=== PATIENT | female | born 1975 | race Caucasian/White ===

== ENCOUNTER 2020-09-04 11:40 | Emergency (ER) | payer OTHER, SELFPAY ==
[2020-09-04 11:42] VITALS: BP 138/70; PULSE 86; RESP 16; TEMP 37; O2SAT 98; BMI 26.6
--- NOTE | 2020-09-04 11:55 | ED.SKABFB ---
HPI - Skin/Abscess/Foreign Bdy General Chief complaint: Skin/Abscess/Foreign Body Stated complaint: COVID VACCINE REACTION Time Seen by Provider: 09/04/20 11:41 Source: patient Mode of arrival: ambulatory Limitations: no limitations History of Present Illness HPI narrative: 44-year-old female presenting to the ED with complaints of redness/swelling and rash to her left arm/neck after receiving the COVID-19 vaccine the moderna the 2nd vaccine on . Denies any other symptoms complaints or concerns at this time. MD complaint: rash Onset (ago): day(s) (Two days ago) Location: LUE Severity: mild Quality: aching and pruritic Pain Consistency: constant Relieving factors: none Exacerbating factors: palpation Context: other () Associated symptoms: denies other symptoms Treatments prior to arrival: none Related Data Previous Rx's Medication Instructions Recorded cephalexin 500 mg PO BID 10 Days #20 cap 09/04/20 doxycycline monohydrate 100 mg PO BID 10 Days #20 cap 09/04/20 hydrocortisone 1 appl TOPICAL QD-TID PRN #454 g 09/04/20 prednisone 40 mg PO DAILY 5 Days #10 tab 09/04/20 tramadol 50 mg PO BID PRN #14 tab 09/04/20 Allergies Allergy/AdvReac Type Severity Reaction Status Date / Time No Known Allergies Allergy Verified 09/04/20 11:44 Review of Systems Review of Systems: Constitutional : No Fever, No Chills , no body aches, no recent illness Head/Face: No facial swelling, No facial redness ENT/Mouth : No oral/throat swelling, No Hoarseness, No Swallowing Difficulty Eyes: No Eye Pain, No Swelling, No Redness Cardiovascular : No Chest Pain, No SOB, No palpitations Respiratory : No Cough, No Sputum, No Wheezing, No Smoke Exposure, No Dyspnea Gastrointestinal : No Nausea, No Vomiting, No Diarrhea, No abdominal Pain Genitourinary : No Dysuria, No Urinary Frequency, No Hematuria Musculoskeletal : No joint pain, No Myalgias, No Joint Swelling Skin : No Skin Lesions, positive rash Neuro : No Weakness, No Numbness, No Headache, No dizziness, No tingling Psych : No Anxiety/Panic, No Depression Heme/Lymph: No Bruising, No Lymphadenopathy Endocrine : No Polyuria, No Polydipsia Denies changes in lotions or detergents. Denies new medications or any changes in medications. Denies drainage from rash. Denies any recent sick contacts or recent travel. Yes all other systems are reviewed and are negative PMFSH Past Medical History Attestation statement: The following information was validated with the patient. Medical History No known health problems Physical Exam Vital Signs: Vital Signs: Last Vital Signs Temp 98.6 F 09/04/20 11:42 Pulse 86 09/04/20 11:42 Resp 16 09/04/20 11:42 BP 138/70 09/04/20 11:42 Pulse Ox 98 09/04/20 11:42 Body Mass Index 26.6 vital signs have been reviewed as normal and appeared to be correct. Blood pressure normal. Heart rate normal. Respiration rate normal. Temperature normal. Oxygen saturation normal. Appearance: Alert. Oriented X3. No acute distress. Head: Normal external exam. Normocephalic. Atraumatic. Eyes: PERRLA. EOMI. Conjunctiva and sclera normal. Eyelids normal. ENT: Pharynx normal. Uvula midline. Moist mucous membranes. No trismus noted. No drooling noted. No muffled voice noted. Neck: Normal inspection. Neck supple. FROM. No adenopathy. Thyroid Normal. No meningeal signs. No neck mass noted. CVS: Normal heart rate and rhythm. Heart sound normal. Pulses normal throughout. No murmurs/rales/gallops. Respiratory: No respiratory distress. Painless inspiration. Breath sounds normal. No wheezes/rales/rhonchi noted. Chest nontender. No accessory muscle usage noted or decreased air movement noted. Abdomen: Soft and nontender. Bowel sounds normal in all 4 quadrants. No distention noted. No organomegaly noted. No visible injury noted. Back: No CVA tenderness. Full range of motion noted. No rashes/lesion/induration/fluctuance or signs of infection noted. Skin: To left arm patient has mild soft tissue swelling/erythema/calor to touch at the injection site consistent with cellulitic infection. To posterior back/neck area patient has well-demarcated macular papular blanching lesions consistent with contact dermatitis versus allergic reaction. The rest of the Skin is warm and dry. Normal skin color. Normal skin turgor. No lesions/lacerations noted. Extremities: No lower extremity edema. Extremities exhibit normal range of motion. Extremities nontender. Neuro: Oriented X 3. No motor deficit. No sensory deficit. Reflexes normal. Normal steady gait. No focal neuro deficits noted. Vascular: + radial pulses/+ 2 distal pedal pulses/+2 dorsalis pedis b/l. Normal cap refill. No cyanosis noted to upper extremity nails and lower extremity toes nails. Course Course Course Narrative: 44-year-old female presenting to the ED after her 2nd Moderna vaccine on with pain/swelling/redness to left arm where the injection site was now rash developed to the posterior back/neck area. On exam patient appears to have cellulitic infection versus adverse reaction versus allergic reaction. No signs of angioedema. Will DC home with antibiotics and prednisone and instructions to return if any new or worsening symptoms to follow up with primary care provider. Patient understands agrees with this plan. MDM - Skin/Abscess/Foreign Bdy Medical Records Attestation: I reviewed the patient's medical records. Discharge Plan Discharge Clinical Impression: Cellulitis, Adverse reaction to COVID-19 vaccine Patient Disposition: Home, Self-Care Instructions: Cellulitis (ED), Acute Rash (ED), General Allergic Reaction (ED) Prescriptions: New prednisone 20 mg tablet 40 mg PO DAILY 5 Days Qty: 10 RF: 0 tramadol 50 mg tablet 50 mg PO BID PRN (Reason: pain) Qty: 14 RF: 0 doxycycline monohydrate 100 mg capsule 100 mg PO BID 10 Days Qty: 20 RF: 0 cephalexin 500 mg capsule 500 mg PO BID 10 Days Qty: 20 RF: 0 hydrocortisone 2.5 % ointment 1 appl topical QD-TID PRN (Reason: skin irritation) Qty: 454 RF: 0 Referrals: Physician,None [Primary Care Provider] - 2 days (your pcp) Print Language: Yoruba
== END 2020-09-04 12:32 | disposition home or self-care (01) ==
PROVIDERS: Emergency Provider Emergency Medicine
DX: T88.0XXA Infection following immunization, initial encounter (principal); L03.114 Cellulitis of left upper limb
CPT/HCPCS: 99283